=== PATIENT | male | born 1940 | race African-American/Black ===

== ENCOUNTER 2016-11-10 18:40 | Observation (INO) | payer OTHER, BC ==
--- NOTE | 2016-11-10 19:32 | PDOC ---
History of Present Illness - General Chief Complaint: Altered Mental Status Stated Complaint: PSYCHIATRIC Time Seen by Provider: 11/10/16 19:12 - History of Present Illness Initial Comments: 11/10/16 19:24 CHIEF COMPLAINT: dementia HISTORY OF PRESENT ILLNESS: 76 yo M with hx of Alzheimer's, epilepsy, HLD, HTN, alcohol abuse, and Parkinson's sent from [facility] for altered mental status. Per [place] notes, patient has become increasingly combative and is at risk for endangering himself and others. Patient has been witnessed " hurling plates to the floor, wandering from room to room, threatening other patients in the facility, verbally abusive and physically combative to staff and other residents." Patient currently denies any pain but is an unreliable historian. No recent travel or sick contacts. PAST MEDICAL HISTORY: Denies past medical history FAMILY HISTORY: Denies SOCIAL HISTORY: Lives in [facility]. Hx alcohol abuse. SURGICAL HISTORY: Denies ALLERGIES: No known drug allergies REVIEW OF SYSTEMS - unable to perform, patient confused, unreliable historian PHYSICAL EXAM General Appearance: No apparent distress. HEENT: EOMI, PERRLA, normal ENT inspection, normal voice, TMs normal, pharynx normal. No conjunctival pallor. No photophobia, scleral icterus. Neck: Supple. Trachea midline. No tenderness, rigidity, carotid bruit, stridor , lymphadenopathy, or thyromegaly. Respiratory/Chest: Lungs CTAB. Cardiovascular: RRR. S1, S2. Vascular Pulses: Dorsalis-Pedis (R): 2+, Dorsalis-Pedis (L): 2+ Gastrointestinal/Abdominal: Normal bowel sounds. Abdomen soft, non-distended. No tenderness or rebound tenderness. No organomegaly, pulsatile mass, guarding , hernia, hepatomegaly, splenomegaly. Musculoskeletal/Extremities: Normal inspection. FROM of all extremities, normal capillary refill. Pelvis Stable. No CVA tenderness. No tenderness to extremities, pedal edema, swelling, erythema or deformity. Integumentary: Appropriate color, dry, warm. No cyanosis, erythema, jaundice or rash Neurologic: Unable to fully assess, patient confused and unable to follow commands. A&O x 1 to person, but not place or time. Motor strength 5/5. No appreciable EOM palsy, facial droop or sensory deficit. GCS score: 13 NIHSS: 16 11/10/16 19:52 Past History - Past Medical History Allergies/Adverse Reactions: Allergies Allergy/AdvReac Type Severity Reaction Status Date / Time No Known Allergies Allergy Verified 11/10/16 19:13 Home Medications: Ambulatory Orders Acetaminophen [Tylenol] 650 mg PO QID 11/10/16 Aspirin [ASA -] 81 mg PO DAILY 11/10/16 Buspirone HCl [Buspar -] 5 mg PO BID 11/10/16 Carbidopa/Levodopa 10/100 [Sinemet 10/100 -] 1 each PO DAILY 11/10/16 Docusate Sodium [Colace -] 100 mg PO DAILY 11/10/16 Donepezil HCl [Aricept -] 10 mg PO DAILY 11/10/16 Folic Acid 1 mg PO DAILY 11/10/16 Hydrochlorothiazide 25 mg PO DAILY 11/10/16 Levetiracetam [Keppra Xr -] 500 mg PO BID 11/10/16 Lorazepam [Ativan] 0.5 mg PO TID 11/10/16 Metoprolol Tartrate [Lopressor -] 50 mg PO BID 11/10/16 Multivitamin [Poly-Vitamin] 1 each PO DAILY 11/10/16 Quetiapine Fumarate [Seroquel -] 25 mg PO BID 11/10/16 Simvastatin 20 mg PO DAILY 11/10/16 Thiamine HCl [B-1] 100 mg PO DAILY 11/10/16 Vitamin B Complex/Folic Acid [Vitamin B-50 Complex Tablet] 0.4 mg PO BID ED Treatment Course - LABORATORY CBC & Chemistry Diagram: 11/10/16 19:50 11/10/16 19:50 - RADIOLOGY Radiology Studies Ordered: Category Date Time Status HEAD CT WITHOUT CONTRAST [CT] Stat CT Scan 11/10/16 19:22 Ordered CHEST X-RAY PORTABLE* [RAD] Stat Radiology 11/10/16 19:22 Ordered Medical Decision Making - Medical Decision Making 11/10/16 19:52 76 yo M with hx of Alzheimer's, epilepsy, HLD, HTN, alcohol abuse, and Parkinson 's sent from [facility] for altered mental status. -CBC, CMP, PT/INR, cardiac profile, Keppra, Ammonia -UA, UCx, Utox -EKG, CXR -Head CT r/o intracranial pathology Head CT negative. Labs unremarkable. Discussed case with PMTom Liu,who accepts patient for observation for AMS. 11/11/16 06:11 *DC/Admit/Observation/Transfer Diagnosis at time of Disposition: Altered mental status Qualifiers: Altered mental status type: unspecified Qualified Code(s): R41.82 - Altered mental status, unspecified - Discharge Dispostion Admit: Yes
--- NOTE | 2016-11-10 19:37 | PDOC ---
[id number] 97 11/10/16 19:13 11/10/16 19:13 11/10/16 19:13 11/10/16 19:13 11/10/16 19:13 ED Treatment Course - LABORATORY CBC & Chemistry Diagram: 11/12/16 06:15 11/12/16 06:15 Medical Decision Making - Medical Decision Making 11/10/16 19:36 Pt seen by the Advanced Practice Provider under my direct supervision Ancillary studies reviewed I agree with plan as outlined by the Advanced Practice Provider MARINA Ferrera *DC/Admit/Observation/Transfer Diagnosis at time of Disposition: Altered mental status - Discharge Dispostion Disposition: ALF FACILITY Condition at time of disposition: Stable
[2016-11-10 20:11] LABS: BASOPHIL 0.5 % (0-2.0); EOSINOPHIL 3.1 % (0-4.5); MCH 32.4 pg (25.7-33.7); MCHC 33.7 g/dl (32.0-35.9); MEAN CELL VOLUME 96.1 fl (80-96); MEAN PLT VOLUME 10.1 fl (7.5-11.1); NEUTROPHILS 64.9 % (42.8-82.8); PLATELET COUNT 248 K/MM3 (134-434); RDW 12.8 % (11.9-15.9); WHITE BLOOD COUNT 9.8 K/mm3 (4.0-10.0)
[2016-11-10 20:26] LABS: INR 1.18 (0.82-1.09)
[2016-11-10 20:31] LABS: URINE APPEARANCE CLEAR; URINE BILIRUBIN NEGATIVE (NEGATIVE); URINE BLOOD NEGATIVE (NEGATIVE); URINE COLOR YELLOW; URINE GLUCOSE (UA) NEGATIVE (NEGATIVE); URINE KETONE NEGATIVE (NEGATIVE); URINE LEUK ESTERASE NEGATIVE (NEGATIVE); URINE NITRITE NEGATIVE (NEGATIVE); URINE PROTEIN NEGATIVE (NEGATIVE); URINE UROBILINOGEN NEGATIVE E.U./dl (0.2-1.0)
[2016-11-10 20:37] LABS: URINE MARIJUANA THC NEGATIVE ng/ml (CUTOFF=50)
[2016-11-10 20:46] LABS: ALBUMIN 3.7 g/dl (3.4-5.0); ANION GAP 7 (8-16); BILIRUBIN,TOTAL 0.3 mg/dL (0.2-1.0); CALCIUM 9.6 mg/dL (8.5-10.1); CO2 32 mmol/L (21-32); COCKROFT - GAULT 82.87; CREATININE 0.9 mg/dL (0.7-1.3); GLUCOSE,RANDOM 122 mg/dL (74-106); SGOT/AST 13 U/L (15-37); SGPT/ALT 18 U/L (12-78)
[2016-11-10 20:49] LABS: ALK PHOS 75 U/L (45-117); TROPONIN I < 0.02 ng/ml (0.00-0.05)
[2016-11-10] MEDS ORDERED: ACETAMINOPHEN 325 MG TABLET (FP) PO PRN (20:59)
[2016-11-10] MEDS ORDERED: LORAZEPAM CARPU-JECT 2 MG/ML DISP.SYRIN IVPUSH ONE (21:47)
[2016-11-10] MEDS ORDERED: LORAZEPAM CARPU-JECT 2 MG/ML DISP.SYRIN ONE (21:49)
[2016-11-10] MEDS: LORazepam 0.5 MG TABLET PO SCH (22:02)
[2016-11-11] MEDS: QUEtiapine FUMARATE 25 MG TABLET (FP) PO SCH ×3 (00:14→22:45)
[2016-11-11] MEDS: METOPROLOL TARTRATE 50 MG TABLET (FP) PO SCH ×3 (00:14→22:45)
[2016-11-11] MEDS: levETIRAcetam XR 500 MG TAB PO SCH ×3 (00:14→22:46)
[2016-11-11 00:39] VITALS: BMI 22.8
[2016-11-11] MEDS: LORazepam 0.5 MG TABLET PO SCH ×3 (06:16→22:46)
[2016-11-11 08:38] LABS: BASOPHIL 0.7 % (0-2.0); EOSINOPHIL 4.8 % (0-4.5); MCH 32.5 pg (25.7-33.7); MCHC 33.9 g/dl (32.0-35.9); MEAN CELL VOLUME 95.9 fl (80-96); MEAN PLT VOLUME 10.1 fl (7.5-11.1); NEUTROPHILS 55.1 % (42.8-82.8); PLATELET COUNT 228 K/MM3 (134-434); RDW 13.3 % (11.9-15.9); WHITE BLOOD COUNT 6.9 K/mm3 (4.0-10.0)
[2016-11-11 08:39] LABS: ALBUMIN 3.4 g/dl (3.4-5.0); ALK PHOS 65 U/L (45-117); ANION GAP 9 (8-16); BILIRUBIN,TOTAL 0.4 mg/dL (0.2-1.0); CALCIUM 9.7 mg/dL (8.5-10.1); CO2 29 mmol/L (21-32); COCKROFT - GAULT 95.4; CREATININE 0.6 mg/dL (0.7-1.3); GLUCOSE,RANDOM 83 mg/dL (74-106); SGOT/AST 11 U/L (15-37); SGPT/ALT 20 U/L (12-78); TOT PROT 7.1 g/dl (6.4-8.2)
[2016-11-11] MEDS ORDERED: PT OWN MED DRAWER 7, Y5N ONE ×4 (09:07→22:44)
[2016-11-11] MEDS: ASPIRIN 81 MG CHEWABLE TABLETS PO SCH (09:09)
[2016-11-11] MEDS: PANTOPRAZOLE 40 MG TABLET (FP) PO SCH (09:09)
[2016-11-11] MEDS: ATORVASTATIN CA 10 MG TABLET (FP) PO SCH (09:10)
[2016-11-11] MEDS: HYDROCHLOROTHIAZIDE 25 MG TABLET (FP) PO SCH (09:10)
[2016-11-11] MEDS: FOLIC ACID 1 MG TABLET (FP) PO SCH (09:10)
[2016-11-11] MEDS: THIAMINE HCL 100 MG TABLET (FP) PO SCH (09:10)
[2016-11-11] MEDS: DOCUSATE SODIUM 100 MG CAPSULE (FP) PO SCH (09:10)
[2016-11-11] MEDS: DONEPEZIL HCL 10 MG TABLET (FP) PO SCH (09:10)
[2016-11-11] MEDS: MULTIVITAMINS (DAILY MVI) TABLET (FP) PO SCH (09:10)
[2016-11-11] MEDS: CARBIDOPA/LEVODOPA 10/100 TABLET (FP) PO SCH (11:28)
--- NOTE | 2016-11-11 12:01 | HP ---
Admitting History and Physical - Primary Care Physician PCP: Kranthi Liu - Admission Chief Complaint: I don't know History of Present Illness: Mr Lozada is a 76 year old male who comes in from [facility] with altered mental status. Upon seeing him he is asleep but easily arousable. He says he feels fine and is without complaint. He denies fevers, chills, lightheadedness, dizziness, chest pain, shortness of breath, nausea, vomiting, diarrhea, constipation, difficulty or pain on urination, or swelling. He often falls asleep during the history taking. History Source: Patient Limitations to Obtaining History: Dementia - Past Medical History Cardiovascular: Yes: HTN, Hyperlipdemia - Past Surgical History Past Surgical History: Yes: None (per patient) - Smoking History Smoking history: Unknown if ever smoked - Alcohol/Substance Use Hx Alcohol Use: Yes (As per EMS) History of Substance Use: reports: None - Social History Usual Living Arrangement: Yes: [facility] ADL: Support Services History of Recent Travel: No Home Medications - Allergies Allergies/Adverse Reactions: Allergies Allergy/AdvReac Type Severity Reaction Status Date / Time No Known Allergies Allergy Verified 11/10/16 19:13 - Home Medications Home Medications: Ambulatory Orders Acetaminophen [Tylenol] 650 mg PO QID 11/10/16 Aspirin [ASA -] 81 mg PO DAILY 11/10/16 Buspirone HCl [Buspar -] 5 mg PO BID 11/10/16 Carbidopa/Levodopa 10/100 [Sinemet 10/100 -] 1 each PO DAILY 11/10/16 Docusate Sodium [Colace -] 100 mg PO DAILY 11/10/16 Donepezil HCl [Aricept -] 10 mg PO DAILY 11/10/16 Folic Acid 1 mg PO DAILY 11/10/16 Hydrochlorothiazide 25 mg PO DAILY 11/10/16 Levetiracetam [Keppra Xr -] 500 mg PO BID 11/10/16 Lorazepam [Ativan] 0.5 mg PO TID 11/10/16 Metoprolol Tartrate [Lopressor -] 50 mg PO BID 11/10/16 Multivitamin [Poly-Vitamin] 1 each PO DAILY 11/10/16 Quetiapine Fumarate [Seroquel -] 25 mg PO BID 11/10/16 Simvastatin 20 mg PO DAILY 11/10/16 Thiamine HCl [B-1] 100 mg PO DAILY 11/10/16 Vitamin B Complex/Folic Acid [Vitamin B-50 Complex Tablet] 0.4 mg PO BID Family Disease History - Family Disease History Family History: Unable to Obtain Review of Systems Findings/Remarks: Full review of systems obtained, as per HPI and otherwise negative Physical Examination Vital Signs: Vital Signs Temperature 98.1 F 11/11/16 06:00 Pulse Rate 65 11/11/16 06:00 Respiratory Rate 20 11/11/16 06:00 Blood Pressure 114/65 11/11/16 06:00 O2 Sat by Pulse Oximetry (%) 97 11/11/16 05:06 Constitutional: Yes: Other (lethargic, arousable to voice) Eyes: Yes: Conjunctiva Clear, PERRL HENT: Yes: Atraumatic, Normocephalic Cardiovascular: Yes: Regular Rate and Rhythm. No: Gallop, Murmur, Rub Respiratory: Yes: Regular, CTA Bilaterally. No: Rales, Rhonchi, Wheezes Gastrointestinal: Yes: Normal Bowel Sounds, Soft. No: Distention, Tenderness Extremities: Yes: WNL Edema: No Labs: CBC, BMP 11/11/16 07:00 11/11/16 07:00 Imaging - Results Chest X-ray: Report Reviewed, Image Reviewed Cat Scan: Report Reviewed Problem List - Problems (1) Altered mental status Assessment/Plan: -suspect secondary to alcohol abuse with behavioral disturbance -case d/w psychiatry, continue current regimen -monitor, but suspect may be at baseline Code(s): R41.82 - ALTERED MENTAL STATUS, UNSPECIFIED Qualifiers: Altered mental status type: unspecified Qualified Code(s): R41.82 - Altered mental status, unspecified (2) HTN (hypertension) Assessment/Plan: -continue metoprolol and HCTZ -well controlled Code(s): I10 - ESSENTIAL (PRIMARY) HYPERTENSION Qualifiers: Hypertension type: essential hypertension Qualified Code(s): I10 - Essential (primary) hypertension (3) HLD (hyperlipidemia) Assessment/Plan: -continue statin Code(s): E78.5 - HYPERLIPIDEMIA, UNSPECIFIED Qualifiers: Hyperlipidemia type: mixed hyperlipidemia Qualified Code(s): E78.2 - Mixed hyperlipidemia (4) Dementia Assessment/Plan: -case d/w psychiatry, continue current regimen -neurology consulted and awaiting recommendation Code(s): F03.90 - UNSPECIFIED DEMENTIA WITHOUT BEHAVIORAL DISTURBANCE Qualifiers: Dementia type: associated with alcoholism Dementia behavioral disturbance: with behavioral disturbance Qualified Code(s): F03.91 - Unspecified dementia with behavioral disturbance; F10.97 - Alcohol use, unspecified with alcohol-induced persisting dementia (5) Alcohol abuse with alcohol-induced disorder Assessment/Plan: -as above Code(s): F10.19 - ALCOHOL ABUSE WITH UNSPECIFIED ALCOHOL-INDUCED DISORDER
--- NOTE | 2016-11-11 12:26 | EKG ---
Test Reason : Blood Pressure : / mmHG Vent. Rate : 069 BPM Atrial Rate : 069 BPM P-R Int : 182 ms QRS Dur : 106 ms QT Int : 388 ms P-R-T Axes : 080 -36 060 degrees QTc Int : 415 ms NORMAL SINUS RHYTHM WITH SINUS ARRHYTHMIA LEFT AXIS DEVIATION ABNORMAL ECG NO PREVIOUS ECGS AVAILABLE Confirmed by ELI RODRÍGUEZ MD ([id number]) on 11/11/2016 12:25:52 PM Referred By: Confirmed By:ELI RODRÍGUEZ MD
--- NOTE | 2016-11-11 13:38 | CON.PSY ---
Psychiatry Consult Chief Complaint: Altered Mental Status Symptoms: reports: Memory Impairment - Previous Psychiatric Treatment Outpatient: Less than 6 mos ago Inpatient: None - Previous Substance Abuse Treatment Outpatient: None Inpatient: None - Current Medications Current Medications: Active Medications Acetaminophen (Tylenol -) 650 mg PO Q6H PRN PRN Reason: FEVER OR PAIN Aspirin (Asa -) 81 mg PO DAILY [facility] Last Admin: 11/11/16 09:09 Dose: 81 mg Atorvastatin Calcium (Lipitor -) 10 mg PO DAILY [facility] Last Admin: 11/11/16 09:10 Dose: 10 mg Carbidopa/Levodopa (Sinemet 10/100 -) 1 each PO DAILY [facility] Last Admin: 11/11/16 11:28 Dose: 1 each Docusate Sodium (Colace -) 100 mg PO DAILY [facility] Last Admin: 11/11/16 09:10 Dose: 100 mg Donepezil HCl (Aricept -) 10 mg PO DAILY [facility] Last Admin: 11/11/16 09:10 Dose: 10 mg Folic Acid (Folic Acid -) 1 mg PO DAILY [facility] Last Admin: 11/11/16 09:10 Dose: 1 mg Hydrochlorothiazide (Hctz -) 25 mg PO DAILY [facility] Last Admin: 11/11/16 09:10 Dose: 25 mg Levetiracetam (Keppra Xr -) 500 mg PO BID [facility] Last Admin: 11/11/16 09:10 Dose: 500 mg Lorazepam (Ativan -) 0.5 mg PO TID [facility] Last Admin: 11/11/16 13:17 Dose: 0.5 mg Metoprolol Tartrate (Lopressor -) 50 mg PO BID [facility] Last Admin: 11/11/16 09:10 Dose: 50 mg Multivitamins/Minerals/Vitamin C (Tab-A-Vit -) 1 tab PO DAILY [facility] Last Admin: 11/11/16 09:10 Dose: 1 tab Pantoprazole Sodium (Protonix -) 40 mg PO DAILY [facility] Last Admin: 11/11/16 09:09 Dose: 40 mg Quetiapine Fumarate (Seroquel -) 25 mg PO BID [facility] Last Admin: 11/11/16 09:10 Dose: 25 mg Thiamine HCl (Vitamin B1 -) 100 mg PO DAILY [facility] Last Admin: 11/11/16 09:10 Dose: 100 mg - Allergies Allergies: Allergies Allergy/AdvReac Type Severity Reaction Status Date / Time No Known Allergies Allergy Verified 11/10/16 19:13 - Current Living Status Usual Living Arrangement: [facility] - Current Mental Status Evaluation Appearance: Disheveled Attitude: Guarded - Affect Affect: Constrictive Appropriateness: Not Appropriate - Mood Mood: Euthymic - Speech/Language Expressive: Delayed Receptive: Unable to Receive/Comprehend Spoken Words - Psychomotor Activity Psychomotor Activity: Slowed - Thought Process Thought Process: Circumstantial - Thought Content Hallucinations: Absent Delusions: Absent - Self Perception Self Perception: Depersonalization - Cognition Attention: Diminished Orientation: Person Memory, Remote: Impaired Memory, Remote with Promptin/3 - Concentration Serial Sevens Intact: No Simple Calculations Intact: No - Abstraction Proverb Interpretation: Impaired Judgement: Minimally Impaired - Insight Insight: Impaired - Suicidal Ideation Suicidal Ideation: No - Homicidal Ideation Homicidal Ideation: No Assessment/Plan Continue with [facility] psych meds.
--- NOTE | 2016-11-11 16:31 | CON.NEURO ---
Consult Consult Specialty:: Neurology Referred by:: Dr Mark harvey Reason for Consultation:: [facility]ative [facility] - History of Present Illness Chief Complaint: agitation and combative at [facility] History of Present Illness: 76 Year old male , history of Dmentia, Epilepsy , Hyperlipidimia , Alcohol abuse ? Prkinson Disease was sent to Hospital for combativeness and exposing himself. There is no fever, no seizure like activity, no new motor weakness. He has been very quiet and calf when I saw him on floor. Nursing also said there has not been any combative , he had bowel movement and been eating. PT saw him and he has been able to move around. 7 - History Source History Provided By: Medical Record Limitations to Obtaining History: Dementia - Past Medical History SHIPS OR BARGES LOADER: Yes: Alzheimer's, Dementia, Parkinson's, Seizure Cardio/Vascular: Yes: HTN, Hyperlipdemia - Past Surgical History Past Surgical History: Yes: None (per patient) - Alcohol/Substance Use Hx Alcohol Use: Yes (As per EMS) History of Substance Use: reports: None - Smoking History Smoking history: Unknown if ever smoked - Social History Usual Living Arrangement: Longterm ADL: Support Services History of Recent Travel: No Home Medications - Allergies Allergies/Adverse Reactions: Allergies Allergy/AdvReac Type Severity Reaction Status Date / Time No Known Allergies Allergy Verified 11/10/16 19:13 - Home Medications Home Medications: Ambulatory Orders Acetaminophen [Tylenol] 650 mg PO QID 11/10/16 Aspirin [ASA -] 81 mg PO DAILY 11/10/16 Buspirone HCl [Buspar -] 5 mg PO BID 11/10/16 Carbidopa/Levodopa 10/100 [Sinemet 10/100 -] 1 each PO DAILY 11/10/16 Docusate Sodium [Colace -] 100 mg PO DAILY 11/10/16 Donepezil HCl [Aricept -] 10 mg PO DAILY 11/10/16 Folic Acid 1 mg PO DAILY 11/10/16 Hydrochlorothiazide 25 mg PO DAILY 11/10/16 Levetiracetam [Keppra Xr -] 500 mg PO BID 11/10/16 Lorazepam [Ativan] 0.5 mg PO TID 11/10/16 Metoprolol Tartrate [Lopressor -] 50 mg PO BID 11/10/16 Multivitamin [Poly-Vitamin] 1 each PO DAILY 11/10/16 Quetiapine Fumarate [Seroquel -] 25 mg PO BID 11/10/16 Simvastatin 20 mg PO DAILY 11/10/16 Thiamine HCl [B-1] 100 mg PO DAILY 11/10/16 Vitamin B Complex/Folic Acid [Vitamin B-50 Complex Tablet] 0.4 mg PO BID Physical Exam-Neuro Vital Signs: Vital Signs Temperature 97.8 F 11/11/16 15:18 Pulse Rate 68 11/11/16 15:18 Respiratory Rate 18 11/11/16 15:18 Blood Pressure 118/61 11/11/16 10:00 O2 Sat by Pulse Oximetry (%) 98 11/11/16 13:00 Labs: CBC, BMP 11/11/16 07:00 11/11/16 07:00 INR, PTT INR 1.18 (0.82-1.09) H 11/10/16 19:50 - Neuro Exam Level Of Consciousness: Yes: Alert, Oriented to Person Eyes: Yes: PERRL, PERRLA Speech: WNL Cranial Nerves II-XII Intact: Yes Gag: Present Babinski: Absent Response to light touch: Normal Response to pain prick: Normal Motor Strength: 5/5: Left Arm, Right Arm, Left Leg, Right Leg Gait: Deferred NIH Stroke Scale - Total Score NIH Stroke Scale Score: 0 Imaging - Results Cat Scan: Report Reviewed Problem List - Problems (1) Dementia Code(s): F03.90 - UNSPECIFIED DEMENTIA WITHOUT BEHAVIORAL DISTURBANCE Qualifiers: Dementia type: associated with alcoholism Dementia behavioral disturbance: with behavioral disturbance Qualified Code(s): F03.91 - Unspecified dementia with behavioral disturbance; F10.97 - Alcohol use, unspecified with alcohol-induced persisting dementia Assessment/Plan 76 Year old male history of Dementia, Alzheimer disease , HLD , HTN , alcohol abuse and ? parkinson disease. Patient has been quite comfortable and no agitation or combative behavior. Neuro exam is non focal, and he is oriented x 1 ct head is unremarkable except white matter disease Plan-- Continue current level of care, There is no need to change medication - avoid anticholinergic medicaiton or sedative medication - he may not need sinemet as there is no tremor or bradykinesia seen and at this low dose it would not help him at all. - At this time, no further recommendaiton. - concur with psychiatry there is no need for any change in medication - please feel free to call me if you have any question
[2016-11-12] MEDS: LORazepam 0.5 MG TABLET PO SCH ×3 (05:30→21:33)
[2016-11-12 07:34] LABS: BASOPHIL 0.7 % (0-2.0); EOSINOPHIL 3.5 % (0-4.5); MCH 32.7 pg (25.7-33.7); MCHC 34.2 g/dl (32.0-35.9); MEAN CELL VOLUME 95.5 fl (80-96); MEAN PLT VOLUME 10.2 fl (7.5-11.1); NEUTROPHILS 63.7 % (42.8-82.8); PLATELET COUNT 229 K/MM3 (134-434); RDW 13.2 % (11.9-15.9)
[2016-11-12 07:49] LABS: CALCIUM 9.9 mg/dL (8.5-10.1); MAGNESIUM 2.2 mg/dL (1.8-2.4)
[2016-11-12 07:50] LABS: COCKROFT - GAULT 81.7; CREATININE 0.7 mg/dL (0.7-1.3); PHOSPHOROUS 3.3 mg/dL (2.5-4.9)
--- NOTE | 2016-11-12 10:24 | DS ---
Physical Examination Vital Signs: Vital Signs Temperature 97.0 F L 11/12/16 06:00 Pulse Rate 58 L 11/12/16 06:00 Respiratory Rate 20 11/12/16 06:00 Blood Pressure 144/62 11/12/16 06:00 O2 Sat by Pulse Oximetry (%) 98 11/12/16 05:00 Constitutional: Yes: Well Nourished, No Distress, Calm Cardiovascular: Yes: Regular Rate and Rhythm. No: Gallop, Murmur, Rub Respiratory: Yes: Regular, CTA Bilaterally. No: Rales, Rhonchi, Wheezes Gastrointestinal: Yes: Normal Bowel Sounds, Soft. No: Distention, Tenderness Extremities: Yes: WNL Edema: No Labs: CBC, BMP 11/12/16 06:15 11/12/16 06:15 Discharge Summary Reason For Visit: ALTERED MENTAL STATUS Current Active Problems Alcohol abuse with alcohol-induced disorder (Acute) Altered mental status (Acute) Dementia (Acute) HLD (hyperlipidemia) (Acute) HTN (hypertension) (Acute) Hospital Course: (1) Altered mental status Code(s): R41.82 - ALTERED MENTAL STATUS, UNSPECIFIED Qualifiers: Altered mental status type: unspecified Qualified Code(s): R41.82 - Altered mental status, unspecified (2) HTN (hypertension) Code(s): I10 - ESSENTIAL (PRIMARY) HYPERTENSION Qualifiers: Hypertension type: essential hypertension Qualified Code(s): I10 - Essential (primary) hypertension (3) HLD (hyperlipidemia) Code(s): E78.5 - HYPERLIPIDEMIA, UNSPECIFIED Qualifiers: Hyperlipidemia type: mixed hyperlipidemia Qualified Code(s): E78.2 - Mixed hyperlipidemia (4) Dementia Code(s): F03.90 - UNSPECIFIED DEMENTIA WITHOUT BEHAVIORAL DISTURBANCE Qualifiers: Dementia type: associated with alcoholism Dementia behavioral disturbance: with behavioral disturbance Qualified Code(s): F03.91 - Unspecified dementia with behavioral disturbance; F10.97 - Alcohol use, unspecified with alcohol-induced persisting dementia (5) Alcohol abuse with alcohol-induced disorder Code(s): F10.19 - ALCOHOL ABUSE WITH UNSPECIFIED ALCOHOL-INDUCED DISORDER Mr Lozada is a 76 year old male who comes in with AMS secondary to dementia from alcohol abuse. He was admitted under observation. He was seen by both neurology and psychiatry. He remained calm while here and was able to participate with PT without difficulty. He was evaluated and no acute metabolic cause for mental status was ascertained. Currently he is stable and can be discharged from the hospital today. 37 minutes spent in preparation of this discharge Condition: Stable - Instructions Diet, Activity, Other Instructions: resume previous diet. Activity per SNF. Referrals: Kranthi Liu MD [Primary Care Provider] - Disposition: [facility] - Home Medications Comprehensive Discharge Medication List: Ambulatory Orders Acetaminophen [Tylenol] 650 mg PO QID 11/10/16 Aspirin [ASA -] 81 mg PO DAILY 11/10/16 Carbidopa/Levodopa [Sinemet -] 1 each PO DAILY 11/10/16 Docusate Sodium [Colace -] 100 mg PO DAILY 11/10/16 Donepezil HCl [Aricept -] 10 mg PO DAILY 11/10/16 Folic Acid 1 mg PO DAILY 11/10/16 Hydrochlorothiazide 25 mg PO DAILY 11/10/16 Levetiracetam [Keppra Xr -] 500 mg PO BID 11/10/16 Lorazepam [Ativan] 0.5 mg PO TID 11/10/16 Metoprolol Tartrate [Lopressor -] 50 mg PO BID 11/10/16 Multivitamin [Poly-Vitamin] 1 each PO DAILY 11/10/16 Quetiapine Fumarate [Seroquel -] 25 mg PO BID 11/10/16 Simvastatin 20 mg PO DAILY 11/10/16 Thiamine HCl [B-1] 100 mg PO DAILY 11/10/16 Vitamin B Complex/Folic Acid [Vitamin B-50 Complex Tablet] 0.4 mg PO BID
[2016-11-12] MEDS ORDERED: PT OWN MED DRAWER 7, Y5N ONE ×2 (10:49→21:22)
[2016-11-12] MEDS: ASPIRIN 81 MG CHEWABLE TABLETS PO SCH (10:56)
[2016-11-12] MEDS: DONEPEZIL HCL 10 MG TABLET (FP) PO SCH (10:56)
[2016-11-12] MEDS: DOCUSATE SODIUM 100 MG CAPSULE (FP) PO SCH (10:56)
[2016-11-12] MEDS: METOPROLOL TARTRATE 50 MG TABLET (FP) PO SCH ×2 (10:56→21:32)
[2016-11-12] MEDS: HYDROCHLOROTHIAZIDE 25 MG TABLET (FP) PO SCH (10:56)
[2016-11-12] MEDS: MULTIVITAMINS (DAILY MVI) TABLET (FP) PO SCH (10:56)
[2016-11-12] MEDS: FOLIC ACID 1 MG TABLET (FP) PO SCH (10:57)
[2016-11-12] MEDS: ATORVASTATIN CA 10 MG TABLET (FP) PO SCH (10:57)
[2016-11-12] MEDS: THIAMINE HCL 100 MG TABLET (FP) PO SCH (10:57)
[2016-11-12] MEDS: QUEtiapine FUMARATE 25 MG TABLET (FP) PO SCH ×2 (10:57→21:32)
[2016-11-12] MEDS: CARBIDOPA/LEVODOPA 10/100 TABLET (FP) PO SCH (10:58)
[2016-11-12] MEDS: PANTOPRAZOLE 40 MG TABLET (FP) PO SCH (10:58)
[2016-11-12] MEDS: levETIRAcetam XR 500 MG TAB PO SCH ×2 (11:00→21:31)
[2016-11-12] MEDS: POLYETHYLENE GLYCOL 3350 119 GM BTL PO SCH (11:00)
[2016-11-13] MEDS: LORazepam 0.5 MG TABLET PO SCH (05:31)
[2016-11-13] MEDS ORDERED: PT OWN MED DRAWER 7, Y5N ONE ×2 (07:33→09:13)
--- NOTE | 2016-11-13 08:33 | DS ---
Physical Examination Vital Signs: Vital Signs Temperature 98.2 F 11/13/16 05:59 Pulse Rate 58 L 11/13/16 05:59 Respiratory Rate 20 11/13/16 05:59 Blood Pressure 117/52 11/13/16 05:59 O2 Sat by Pulse Oximetry (%) 98 11/13/16 05:00 Constitutional: Yes: Well Nourished, No Distress, Calm Eyes: No: Sclera Icterus Cardiovascular: Yes: Regular Rate and Rhythm Respiratory: Yes: CTA Bilaterally Gastrointestinal: Yes: Normal Bowel Sounds, Soft. No: Tenderness Edema: No Labs: CBC, BMP 11/12/16 06:15 11/12/16 06:15 Discharge Summary Reason For Visit: ALTERED MENTAL STATUS Current Active Problems Dementia (Chronic) HLD (hyperlipidemia) (Chronic) HTN (hypertension) (Chronic) Hospital Course: Please refer to previous hospital notes Patient transferred from SNF for altered mental status. Findings stabilized Now to be sent to a different SNF as per family wishes Condition: Stable - Instructions Diet, Activity, Other Instructions: resume previous diet. Activity per SNF. Referrals: Kranthi Liu MD [Primary Care Provider] - Disposition: [facility] - Home Medications Comprehensive Discharge Medication List: Ambulatory Orders Acetaminophen [Tylenol] 650 mg PO QID 11/10/16 Aspirin [ASA -] 81 mg PO DAILY 11/10/16 Carbidopa/Levodopa 10/100 [Sinemet 10/100 -] 1 each PO DAILY 11/10/16 Docusate Sodium [Colace -] 100 mg PO DAILY 11/10/16 Donepezil HCl [Aricept -] 10 mg PO DAILY 11/10/16 Folic Acid 1 mg PO DAILY 11/10/16 Hydrochlorothiazide 25 mg PO DAILY 11/10/16 Levetiracetam [Keppra Xr -] 500 mg PO BID 11/10/16 Lorazepam [Ativan] 0.5 mg PO TID 11/10/16 Metoprolol Tartrate [Lopressor -] 50 mg PO BID 11/10/16 Multivitamin [Poly-Vitamin] 1 each PO DAILY 11/10/16 Quetiapine Fumarate [Seroquel -] 25 mg PO BID 11/10/16 Simvastatin 20 mg PO DAILY 11/10/16 Thiamine HCl [B-1] 100 mg PO DAILY 11/10/16 Vitamin B Complex/Folic Acid [Vitamin B-50 Complex Tablet] 0.4 mg PO BID
[2016-11-13] MEDS: ASPIRIN 81 MG CHEWABLE TABLETS PO SCH (09:15)
[2016-11-13] MEDS: DONEPEZIL HCL 10 MG TABLET (FP) PO SCH (09:15)
[2016-11-13] MEDS: DOCUSATE SODIUM 100 MG CAPSULE (FP) PO SCH (09:15)
[2016-11-13] MEDS: levETIRAcetam XR 500 MG TAB PO SCH (09:16)
[2016-11-13] MEDS: HYDROCHLOROTHIAZIDE 25 MG TABLET (FP) PO SCH (09:16)
[2016-11-13] MEDS: ATORVASTATIN CA 10 MG TABLET (FP) PO SCH (09:16)
[2016-11-13] MEDS: FOLIC ACID 1 MG TABLET (FP) PO SCH (09:16)
[2016-11-13] MEDS: POLYETHYLENE GLYCOL 3350 119 GM BTL PO SCH (09:17)
[2016-11-13] MEDS: METOPROLOL TARTRATE 50 MG TABLET (FP) PO SCH (09:17)
[2016-11-13] MEDS: CARBIDOPA/LEVODOPA 10/100 TABLET (FP) PO SCH (09:18)
[2016-11-13] MEDS: PANTOPRAZOLE 40 MG TABLET (FP) PO SCH (09:18)
[2016-11-13] MEDS: QUEtiapine FUMARATE 25 MG TABLET (FP) PO SCH (09:18)
[2016-11-13] MEDS: MULTIVITAMINS (DAILY MVI) TABLET (FP) PO SCH (09:19)
[2016-11-13] MEDS: THIAMINE HCL 100 MG TABLET (FP) PO SCH (09:19)
[2016-11-13 10:14] VITALS: BP 118/59; PULSE 59; TEMP 97.7
== END 2016-11-13 13:04 ==
LOC: JER 18:40 → JERBED 20:55 → J8W 23:03
PROVIDERS: ADMIT Internal Medicine Geriatric Medicine; ATTEND Internal Medicine Geriatric Medicine
PROC: 3E033GC Introduction of Other Therapeutic Substance into Peripheral Vein, Percutaneous Approach (ICD-10-PCS; principal; 2016-11-10)
DX: R41.82 Altered mental status, unspecified (principal); G30.9 Alzheimer's disease, unspecified; F02.80 Dementia in other diseases classified elsewhere, unspecified severity, without behavioral disturbance, psychotic disturbance, mood disturbance, and anxiety; G20 Parkinson's disease; G40.909 Epilepsy, unspecified, not intractable, without status epilepticus; I10 Essential (primary) hypertension; F10.19 Alcohol abuse with unspecified alcohol-induced disorder; Z79.82 Long term (current) use of aspirin
CPT/HCPCS: 36415; 70450-TC; 71010-TC; 80048; 80053; 80307; 81003; 82140; 82550; 83735; 84100; 84484; 85025; 85610; 87040; 93005; 93010; 97116-GP; 97161-GP; 99283-25; G0378

== ENCOUNTER 2018-07-05 10:10 | Day surgery (SDC) | payer OTHER, BC ==
[2018-06-26 14:40] VITALS: BMI 22.7
[2018-07-05] MEDS ORDERED: PROPOFOL 20 ML ONE (10:50)
[2018-07-05 12:29] VITALS: TEMP 98
[2018-07-05 13:00] VITALS: BP 144/79; PULSE 64
--- NOTE | 2018-07-06 17:23 | PATH ---
Surgical Pathology Report Patient Name: PRESTON BENITO [facility]. Rec. #: [id number] /Age/Gender: 1940 (Age: 77) / M Account: [id number] Location: [facility] Taken: 07/05/2018 Received: 07/05/2018 Reported: 07/06/2018 Physicians: Josselin Tillman M.D. Specimen(s) Received A: BX ANTRUM B: OLD PEG TUBE Clinical History Dysphagia Postoperative diagnosis: Gastritis, PEG tube removal Final Diagnosis A. STOMACH, ANTRUM, BIOPSY: GASTRIC ANTRAL MUCOSA WITH MILD CHRONIC GASTRITIS. IMMUNOHISTOCHEMICAL STAIN FOR H. PYLORI IS NEGATIVE. B. PEG TUBE, OLD, REMOVAL: CONSISTENT WITH PEG TUBE. MACROSCOPIC DIAGNOSIS. Electronically Signed Josselin Antonio M.D. Gross Description A. Received in formalin, labeled "biopsy antrum" is a pugh, irregular portion of soft tissue measuring 0.3 cm. in greatest dimension. The specimen is submitted in toto in one cassette. B. Received fresh labeled "old PEG tube," is a 9 cm in length pugh portion of tubing, consistent with a peg tube. No soft tissue is present. No sections are submitted, gross only. 07/05/201807/05/2018
== END 2018-07-05 12:50 ==
LOC: FASU-ENDO 10:10
PROVIDERS: ATTEND Internal Medicine Gastroenterology
PROC: 0DB68ZX Excision of Stomach, Via Natural or Artificial Opening Endoscopic, Diagnostic (ICD-10-PCS; 2018-07-05)
PROC: 0DP64UZ Removal of Feeding Device from Stomach, Percutaneous Endoscopic Approach (ICD-10-PCS; principal; 2018-07-05 10:15)
DX: Z43.1 Encounter for attention to gastrostomy (principal); K29.50 Unspecified chronic gastritis without bleeding
CPT/HCPCS: 88300-TC; 88305-TC; 88342-TC